=== PATIENT | male | born 1940 | race Caucasian/White ===

== ENCOUNTER → 2023-09-02 07:03 | Outpatient (REF) | payer OTHER, SELFPAY | LOC: RAD 07:03 | PROVIDERS: ATTENDING PHYSICIAN Family Medicine | DX: E11.69 Type 2 diabetes mellitus with other specified complication (principal); T46.6X5A Adverse effect of antihyperlipidemic and antiarteriosclerotic drugs, initial encounter; G72.0 Drug-induced myopathy; I12.9 Hypertensive chronic kidney disease with stage 1 through stage 4 chronic kidney disease, or unspecified chronic kidney disease; N18.31 Chronic kidney disease, stage 3a; G47.30 Sleep apnea, unspecified; I70.0 Atherosclerosis of aorta; I25.10 Atherosclerotic heart disease of native coronary artery without angina pectoris; E78.2 Mixed hyperlipidemia | CPT/HCPCS: 93880 ==

== ENCOUNTER 2024-01-17 06:26 | Outpatient (RCR) | payer OTHER, SELFPAY | END 2024-01-17 23:59 | disposition home or self-care (01) | LOC: RPT 06:26 | PROVIDERS: ATTENDING PHYSICIAN Orthopaedic Surgery Orthopaedic Surgery of the Spine; FAMILY PHYSICIAN Family Medicine | DX: M48.061 Spinal stenosis, lumbar region without neurogenic claudication (principal); M47.816 Spondylosis without myelopathy or radiculopathy, lumbar region; Z73.6 Limitation of activities due to disability | CPT/HCPCS: 97110; 97162 ==

== ENCOUNTER 2024-02-04 07:48 | Outpatient (RCR) | payer OTHER, SELFPAY | END 2024-02-04 08:38 | disposition home or self-care (01) | LOC: RPT 07:48 | PROVIDERS: ATTENDING PHYSICIAN Orthopaedic Surgery Orthopaedic Surgery of the Spine; FAMILY PHYSICIAN Family Medicine | DX: M48.061 Spinal stenosis, lumbar region without neurogenic claudication (principal); Z73.6 Limitation of activities due to disability | CPT/HCPCS: 97010; 97110 ==

== ENCOUNTER 2024-03-08 07:21 | Inpatient (IN) | payer OTHER, SELFPAY ==
[2024-02-22 10:16] LABS: Hematocrit 47.3 % (39.0-52.0); Hemoglobin 17.2 g/dL (13.0-18.0); Mean Corp Hgb Conc. 36.4 g/dL (33.0-37.0); Mean Corpuscular Hgb 32.3 pg (27.0-31.0); Mean Corpuscular Volume 88.7 fL (80.0-94.0); Mean Platelet Volume 12.2 fL (7.4-10.4); Platelet Count 170 10^3/uL (130-400); Red Blood Cell Count 5.33 10^6/uL (4.70-6.10); Red Cell Dist. Width 13.2 % (11.5-14.5)
[2024-02-22 11:11] LABS: ALT (SGPT) 31 U/L (0-50); AST (SGOT) 36 U/L (17-59); Albumin 4.7 g/dl (3.5-5.0); Alkaline Phosphatase 86 U/L (38-126); Blood Urea Nitrogen 26 mg/dl (9-20); Calcium 9.9 mg/dl (8.4-10.2); Carbon Dioxide 20 mmol/L (22-30); Chloride 104 mmol/L (98-107); Glucose 147 mg/dl (70-99); Potassium 4.2 mmol/L (3.5-5.1); Sodium 141 mmol/L (135-145); Total Bilirubin 0.9 mg/dl (0.2-1.3); Total Protein 7.2 g/dl (6.3-8.2); eGFR > 60.00
[2024-02-22 13:59] VITALS: BMI 34.1
[2024-03-01 12:45] VITALS: BMI 34.1
[2024-03-08] VITALS (13 sets, daily range): BP systolic 134–183; BP diastolic 61–96; PULSE 91; O2SAT 94; BMI 34.1
[2024-03-08 08:14] LABS: Glucose - Point of Care 143 mg/dl (70-99)
[2024-03-08] MEDS: CELEBREX 200 MG PO (08:15)
[2024-03-08] MEDS: NORMOSOL-R/PLASMALYTE-A 1000 IV ×2 (08:15→15:34)
[2024-03-08] MEDS: SKELAXIN 800 MG PO (08:16)
[2024-03-08] MEDS: LYRICA 150 MG PO (08:16)
[2024-03-08] MEDS: TYLENOL 1000 MG PO ×3 (08:16→22:19)
[2024-03-08 11:11] LABS: Glucose - Point of Care 133 mg/dl (70-99)
--- NOTE | 2024-03-08 11:21 | SUR.PHASEI ---
Patients 02 sat 70% on arrival to PACU, airway managed by HORSE BREEDER, oral airway inserted, 02 flow increased to 15L/min. sat increased to 90-94%. Darell Kumar RN BSN.
[2024-03-08] MEDS: DILAUDID 0.5 MG IV ×3 (11:27→11:54)
--- NOTE | 2024-03-08 12:06 | SUR.PHASEI ---
Patient in PACU for 160 mins. Waiting for admit orders, Dr Naqvi and [facility] TT re same. Darell tirado RN BSN.
[2024-03-08] MEDS: DILAUDID 0.25 MG IV ×3 (12:08→12:59)
--- NOTE | 2024-03-08 12:15 | W.DS.TRANS ---
DC Summary - Enologist
-
Discharge Instructions:
Discharge Diagnosis/Procedures L 3-4-[address] Naqvi 03/08/24
Diet Diabetic, Carb Controlled
Activity No strenuous activity
Driving Restrictions No driving
Instructions:
Stand-Alone Forms: [facility] D/C Inst.
Changes to Home Medications: Yes
Discharge Medications:
DC Medications w/original date entered in [facility]
aspirin 81 mg tablet,delayed release 81 mg PO DAILY Blood clot prevention/tx 05/18/13
alprazolam 0.25 mg tablet 0.25 mg PO DAILYPRN PRN anxiety ##0 11/13/15
nitroglycerin 0.4 mg sublingual tablet 0.4 mg sublingual [id number] PRN chest pain ##25 11/13/15
evolocumab 140 mg/mL subcutaneous syringe (Repatha Syringe) 140 mg SQ Q2W High cholesterol 02/18/20
Triamterene/Hydrochlorothiazid 1 tab PO DAILY 06/09/21
pantoprazole 40 mg tablet,delayed release 40 mg PO DAILY 06/09/21
ascorbic acid (vitamin C) 500 mg tablet (Vitamin C) 500 mg PO DAILY 03/01/24
empagliflozin 10 mg tablet (Jardiance) 10 mg PO DAILY 03/01/24
fiber 1 dose PO DAILY 03/01/24
polyethylene glycol 3350 17 gram oral powder packet (Miralax) 17 g PO DAILY PRN constipation 03/01/24
Saccharomyces boulardii 250 mg capsule (Florastor) 250 mg PO BID #1 cap 03/08/24
acetaminophen 500 mg tablet (Tylenol Extra Strength) 1,000 mg (2 x 500 mg) PO QID #0 tabs 03/08/24
cephalexin 500 mg capsule 500 mg PO QID infection prevention #20 caps 03/08/24
docusate sodium 100 mg capsule (Colace) 100 mg PO BID stool softner #1 cap 03/08/24
magnesium hydroxide 400 mg/5 mL oral suspension (Milk of Magnesia) 30 ml PO HS PRN Constipation #1 mL 03/08/24
ondansetron 4 mg disintegrating tablet 4 mg PO Q6H PRN n/v #20 tabs 03/08/24
oxycodone 5 mg tablet 5 mg PO Q6H PRN 1 tab moderate pain, 2 tabs severe pain #30 tabs 03/08/24
sennosides 8.6 mg tablet (Senokot) 17.2 mg (2 x 8.6 mg) PO BID laxative #2 tabs 03/08/24
Home Medication Changes
cephalexin 500 mg capsule 500 mg PO QID� infection prevention #20 caps 03/08/24�
ondansetron 4 mg disintegrating tablet 4 mg PO Q6H PRN n/v #20 tabs 03/08/24�
oxycodone 5 mg tablet 5 mg PO Q6H PRN 1 tab moderate pain, 2 tabs severe pain #30 tabs 03/08/24�
Pending Results: No
--- NOTE | 2024-03-08 15:00 | PTCARENOTE ---
Received patient from PACU at 1500. Patient AAOx3, no c/o pain, call goss in reach.
[2024-03-08 17:03] LABS: Glucose - Point of Care 290 mg/dl (70-99)
[2024-03-08] MEDS: LANTUS 0.05 UNITS SC (17:48)
[2024-03-08] MEDS: NOVOLOG FLEXPEN-MODERATE RESISTANCE 5 UNITS SC (17:49)
[2024-03-08] MEDS: ULTRAM 50 MG PO (17:53)
[2024-03-08] MEDS: FARXIGA 10 MG PO (17:53)
[2024-03-08] MEDS: PROTONIX 40 MG PO (17:53)
[2024-03-08] MEDS: ANCEF 5 IV (17:54)
[2024-03-08] MEDS: XANAX 0.25 MG PO (20:22)
[2024-03-08] MEDS: SENOKOT 17.2 MG PO (20:22)
[2024-03-08] MEDS: COLACE 100 MG PO (20:23)
[2024-03-08 22:16] LABS: Glucose - Point of Care 147 mg/dl (70-99)
[2024-03-09] VITALS (7 sets, daily range): BP systolic 132–156; BP diastolic 68–86; PULSE 69–77; O2SAT 94–95
[2024-03-09] MEDS: NORMOSOL-R/PLASMALYTE-A 1000 IV (00:46)
[2024-03-09] MEDS: ANCEF 5 IV (00:47)
[2024-03-09] MEDS: ROXICODONE 5 MG PO (04:13)
[2024-03-09 07:31] LABS: Glucose - Point of Care 219 mg/dl (70-99)
--- NOTE | 2024-03-09 08:00 | W.DS.TRANS ---
DC Summary - Service Agent
-
Discharge Instructions:
Discharge Diagnosis/Procedures L 3-4-[address] Naqvi 03/08/24
Diet Diabetic, Carb Controlled
Activity No strenuous activity
Driving Restrictions No driving
Instructions:
Stand-Alone Forms: Naqvi [facility] D/C Inst.
Changes to Home Medications: No
Discharge Medications:
DC Medications w/original date entered in [facility]
aspirin 81 mg tablet,delayed release 81 mg PO DAILY Blood clot prevention/tx 05/18/13
alprazolam 0.25 mg tablet 0.25 mg PO DAILYPRN PRN anxiety ##0 11/13/15
nitroglycerin 0.4 mg sublingual tablet 0.4 mg sublingual [id number] PRN chest pain ##25 11/13/15
evolocumab 140 mg/mL subcutaneous syringe (Repatha Syringe) 140 mg SQ Q2W High cholesterol 02/18/20
Triamterene/Hydrochlorothiazid 1 tab PO DAILY 06/09/21
pantoprazole 40 mg tablet,delayed release 40 mg PO DAILY 06/09/21
ascorbic acid (vitamin C) 500 mg tablet (Vitamin C) 500 mg PO DAILY 03/01/24
empagliflozin 10 mg tablet (Jardiance) 10 mg PO DAILY 03/01/24
fiber 1 dose PO DAILY 03/01/24
polyethylene glycol 3350 17 gram oral powder packet (Miralax) 17 g PO DAILY PRN constipation 03/01/24
Saccharomyces boulardii 250 mg capsule (Florastor) 250 mg PO BID #1 cap 03/08/24
acetaminophen 500 mg tablet (Tylenol Extra Strength) 1,000 mg (2 x 500 mg) PO QID #0 tabs 03/08/24
cephalexin 500 mg capsule 500 mg PO QID infection prevention #20 caps 03/08/24
docusate sodium 100 mg capsule (Colace) 100 mg PO BID stool softner #1 cap 03/08/24
magnesium hydroxide 400 mg/5 mL oral suspension (Milk of Magnesia) 30 ml PO HS PRN Constipation #1 mL 03/08/24
ondansetron 4 mg disintegrating tablet 4 mg PO Q6H PRN n/v #20 tabs 03/08/24
oxycodone 5 mg tablet 5 mg PO Q6H PRN 1 tab moderate pain, 2 tabs severe pain #30 tabs 03/08/24
sennosides 8.6 mg tablet (Senokot) 17.2 mg (2 x 8.6 mg) PO BID laxative #2 tabs 03/08/24
Home Medication Changes
Pending Results: No
--- NOTE | 2024-03-09 08:00 | W.PN.SP ---
Today's Communication / Plan
-
s/p fusion
PT
D/c
Subjective / Objective
Subjective Data
Back pain
Doing well
Objective Data
Vital Signs
Temp Pulse Resp BP Pulse Ox
97.6 F 65 18 142/86 95
03/09/24 03:05 03/09/24 06:12 03/09/24 03:05 03/09/24 06:12 03/09/24 03:05
Intake and Output
03/08/24 03/09/24 03/10/24
06:59 06:59 06:59
Intake Total 2559 / 2559
Output Total 1250 / 1250
Balance 1309 / 1309
Intake:
Oral fluids 1129 / 1129
IV fluids (Total) 1425 / 1425
Norm 125 / 125
Normosol-R/Plasmalyte-A 1,000 140 / 140
ml @ 80 mls/hr IV .L20H21P ABILIO
Rx#:[id number]
IV piggybacks 5 /
Output:
Urine, Voided 1250 / 1250
Physical Exam
-
NO neuro defictis
[2024-03-09] MEDS: ULTRAM 50 MG PO (08:50)
[2024-03-09] MEDS: TYLENOL 1000 MG PO (08:50)
[2024-03-09] MEDS: COLACE 100 MG PO (08:50)
[2024-03-09] MEDS: SENOKOT 17.2 MG PO (08:50)
[2024-03-09] MEDS: FARXIGA 10 MG PO (08:50)
[2024-03-09] MEDS: PROTONIX 40 MG PO (08:50)
[2024-03-09] MEDS: XANAX 0.25 MG PO (08:50)
[2024-03-09] MEDS: LANTUS 0.05 UNITS SC (08:50)
[2024-03-09] MEDS: NOVOLOG FLEXPEN-MODERATE RESISTANCE 3 UNITS SC (08:51)
[2024-03-09 09:55] LABS: Hematocrit 43.6 % (39.0-52.0); Hemoglobin 15.5 g/dL (13.0-18.0)
[2024-03-09 11:03] LABS: Blood Urea Nitrogen 20 mg/dl (9-20); Calcium 8.7 mg/dl (8.4-10.2); Carbon Dioxide 24 mmol/L (22-30); Chloride 100 mmol/L (98-107); Estimated Creatinine Clearance 55 ml/min; Glucose 174 mg/dl (70-99); Sodium 139 mmol/L (135-145); eGFR > 60.00
--- NOTE | 2024-03-09 11:35 | W.PN.ORTHO ---
Today's Communication / Plan
-
d/c
Assessment
.
Distal Motor Intact: Yes
Dressing:
Clean, dry and intact.
Plan
.
Surgery / Date: [facility] w/ inst Dr. Naqvi 03/08/24
Activity:
Out of bed.
PT/OT
Subjective
.
.:
Patient resting comfortably.
Vital Signs and Labs
.
Vital Signs and Labs:
Lab Results
03/09/24 09:33
03/09/24 09:33
Temp Pulse Resp BP Pulse Ox
98.1 F 73 16 137/74 96
03/09/24 11:02 03/09/24 11:02 03/09/24 11:02 03/09/24 11:02 03/09/24 11:02
Physical Exam
-
HEENT: No pallor, cyanosis, or jaundice. Throat clear.
NECK: Supple. No JVD.
RESPIRATORY: Lungs clear to auscultation.
CVS: S1, S2 normal. RRR.� No murmur, rub or gallop.
ABDOMEN: Soft, non-tender. No distension. BS+/normal.
EXTREMITIES: strength equal, no calf pain with palpation
REPORT MANAGER: AOx3. No focal deficits. animal attendants and trainers grossly intact
[2024-03-09 11:49] LABS: Glucose - Point of Care 147 mg/dl (70-99)
[2024-03-09] MEDS: NOVOLOG FLEXPEN-MODERATE RESISTANCE SC (11:50)
[2024-03-09 12:21] LABS: Glycohemoglobin (HgbA1c) 6.8 % (4.0-5.6)
--- NOTE | 2024-03-09 16:14 | CM ---
met with patient and at bedside.patient lives with his son and son's girlfriend in house with 1 morris,his bed and bat his on the first level,he amb i and is i with his adl.he has never had a vn or has a hx of ip rehab.
pcp is dr yuen and he uses [facility] in [place]
patient is adm for L 3-5 posterior spinal fusion,he is stable for dc home with op physical therapy.
== END 2024-03-09 13:43 | disposition home or self-care (01) | DRG 460 ==
LOC: 2 SOUTH 07:21
PROVIDERS: Physician Assistant Medical; ADMITTING PHYSICIAN Orthopaedic Surgery Orthopaedic Surgery of the Spine; FAMILY PHYSICIAN Family Medicine
PROC: 0SG10K1 Fusion of 2 or more Lumbar Vertebral Joints with Nonautologous Tissue Substitute, Posterior Approach, Posterior Column, Open Approach (ICD-10-PCS; 2024-03-08)
DX: M43.16 Spondylolisthesis, lumbar region (principal); M48.061 Spinal stenosis, lumbar region without neurogenic claudication; M41.9 Scoliosis, unspecified; E11.22 Type 2 diabetes mellitus with diabetic chronic kidney disease; I12.9 Hypertensive chronic kidney disease with stage 1 through stage 4 chronic kidney disease, or unspecified chronic kidney disease; N18.31 Chronic kidney disease, stage 3a; E11.65 Type 2 diabetes mellitus with hyperglycemia; K21.9 Gastro-esophageal reflux disease without esophagitis; E78.2 Mixed hyperlipidemia; I25.10 Atherosclerotic heart disease of native coronary artery without angina pectoris; G43.909 Migraine, unspecified, not intractable, without status migrainosus; G47.30 Sleep apnea, unspecified; F41.9 Anxiety disorder, unspecified; I25.2 Old myocardial infarction; Z95.5 Presence of coronary angioplasty implant and graft; Z88.8 Allergy status to other drugs, medicaments and biological substances; Z79.82 Long term (current) use of aspirin; Z79.84 Long term (current) use of oral hypoglycemic drugs
CPT/HCPCS: 72100; 76000; 80048; 80053; 82962; 83036; 85014; 85018; 85027; 87070; 93005; 94660; 97162; 97166; 97530; 97535; C1713; C1776

== ENCOUNTER → 2024-05-23 07:21 | Outpatient (REF) | payer OTHER, SELFPAY | LOC: DHCBC/DCA 07:21 | PROVIDERS: ATTENDING PHYSICIAN Internal Medicine Cardiovascular Disease; FAMILY PHYSICIAN Family Medicine | DX: I25.10 Atherosclerotic heart disease of native coronary artery without angina pectoris (principal) | CPT/HCPCS: 78452; 93017; A9500; J2785 ==

== ENCOUNTER 2024-05-30 07:04 | Day surgery (SDC) | payer OTHER, SELFPAY ==
[2024-05-30] VITALS (19 sets, daily range): BP systolic 124–157; BP diastolic 67–119; BMI 34.2
[2024-05-30] MEDS: LOW STRENGTH ASPIRIN 81 MG PO (07:55)
[2024-05-30 08:22] LABS: Glucose - Point of Care 158 mg/dl (70-99)
--- NOTE | 2024-05-30 10:03 | ITS.CL.CATH ---
Abap Developer - Catheterization
Cardiac Catheterization
Procedure Report:
CARDIAC CATHETERIZATION REPORT
Date of Procedure: 05/30/2024
Referring: Danilo Beckett MD
Indication: Worsening angina with abnormal stress test (inferolateral ischemia)
�
HEMODYNAMIC DATA
AO: 146/92
LV: Not done
�
LEFT VENTRICULOGRAPHY: Not done
�
CORONARY ANGIOGRAPHY
Dominance: Right
Left Main: Normal
LAD: Widely patent mid LAD stent without restenosis. There is 30-40% stenosis in the mid LAD similar to its appearance from the prior study from 01/2020. There are tandem 40% distal LAD lesions.
Circumflex: 40% mid circumflex stenosis proximal to the takeoff of OM 2. OM 2 is a large bifurcating vessel. The circumflex terminates with OM 3 and a small left posterolateral branch. OM 3 has 50% mid stenosis. The circumflex disease is similar
in appearance to the 02/19/2020 study.
RCA: Dominant vessel with 20% proximal RCA stenosis followed by a widely patent stented segment. There is a long stented segment in the mid and distal RCA with a focal area of 20% in-stent stenosis. There is a new 80% lesion in the distal RCA just
proximal to the takeoff of the PDA and moderate-sized single right posterolateral branch. There is diffuse mild disease in the PDA and posterolateral branch.
Angioplasty: At the conclusion the diagnostic study we proceeded with intervention to treat the focal 80% distal RCA lesion. Heparin is used for anticoagulation. Plavix 600 mg was administered at the procedure conclusion. An AR-1 guide provided
outstanding backup support. A BMW wire was advanced into the right posterolateral branch. Direct stenting of the lesion was accomplished with a 3.5 x 12 [place] ASHOK deployed at 14 alex then postdilated with a 3.5 NC Euphora to 17 alex. The final
angiographic result was outstanding. There were no procedural complications.
�
Closure Device: None-the procedure was performed via the right radial artery. The David's test was normal prior to the procedure. Of note, there is a severe degree of angulation from the innominate into the aortic arch. Despite the unfavorable
appearance, we had little difficulty navigating in the aortic root with diagnostic and guide catheters.
�
Radiation (mGy): 758
DAP (cm2.Gy): 51.2
Fluoroscopy time: 5.1 minutes
�
CONCLUSIONS
1:�Multivessel CAD as described-the coronary anatomy is similar to its appearance on the January 2020 study with the exception of a new 80% distal RCA lesion felt to be the culprit for his increasing angina
2:�Successful stenting of 80% distal RCA stenosis using 3.5 x 12 [place] ASHOK with outstanding final result
3. Continue DAPT for 6-12 months then aspirin monotherapy indefinitely
�
�
Copy to: Jerrod Ballesteros MD, Nico Rosa MD
�
Danilo Beckett MD, [facility], [facility]
[2024-05-30 10:27] LABS: ACT-LR - POC 253 Seconds (116-155)
--- NOTE | 2024-05-30 14:22 | W.PN.UPDATE ---
Update Note
Progress Note Update
83 yo WM s/p PCI RCA (same day). He denies cp, sob, modesto diet, voiding, EKG SR, R rad site c/d/i no HT. He will be on DAPT ASA/Plavix. Cardiac rehab c/s. Activity restrictions reviewed. 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 He is for d/c home after 330pm.
CONCLUSIONS
1:�Multivessel CAD as described-the coronary anatomy is similar to its appearance on the January 2020 study with the exception of a new 80% distal RCA lesion felt to be the culprit for his increasing angina
2:�Successful stenting of 80% distal RCA stenosis using 3.5 x 12 [place] ASHOK with outstanding final result
3. Continue DAPT for 6-12 months then aspirin monotherapy indefinitely
�
�
Copy to: Jerrod Ballesteros MD, Nico Rosa MD
[2024-05-30 15:07] LABS: ACT-LR - POC > 397 Seconds (116-155)
== END 2024-05-30 14:45 | disposition home or self-care (01) ==
LOC: CATH 07:04
PROVIDERS: ATTENDING PHYSICIAN Internal Medicine Cardiovascular Disease; FAMILY PHYSICIAN Family Medicine
DX: I25.110 Atherosclerotic heart disease of native coronary artery with unstable angina pectoris (principal); Z79.82 Long term (current) use of aspirin; Z79.899 Other long term (current) drug therapy; Z79.84 Long term (current) use of oral hypoglycemic drugs; I10 Essential (primary) hypertension; K21.9 Gastro-esophageal reflux disease without esophagitis
CPT/HCPCS: 82962; 85347; 93005; 93454; C1725; C1769; C1874; C1894; C9600; Q9967

== ENCOUNTER 2024-06-08 09:28 | Inpatient (IN) | payer OTHER, SELFPAY ==
[2024-06-07] VITALS (7 sets, daily range): BP systolic 89–153; BP diastolic 50–95; BMI 31.1
[2024-06-07 15:57] LABS: % Basophils 0.5 % (0-2); % Eosinophils 1.5 % (0-6); % Immature Granulocytes 0.4 % (0-0.5); % Lymphocytes 12.2 % (20.5-51.1); % Monocytes 8.2 % (1.7-9.3); % Neutrophils 77.2 % (42.2-75.2); Absolute Basophils 0.1 10^3/uL (0-0.2); Absolute Eosinophils 0.2 10^3/uL (0-0.7); Absolute Immature Granulocytes 0.1 10^3/uL (0-0.05); Absolute Lymphocytes 1.7 10^3/uL (1.2-3.4); Absolute Monocytes 1.1 10^3/uL (0.1-0.6); Absolute Neutrophils 10.8 10^3/uL (1.4-6.5); Hematocrit 49.7 % (39.0-52.0); Hemoglobin 17.4 g/dL (13.0-18.0); Mean Corpuscular Hgb 32.4 pg (27.0-31.0); Mean Corpuscular Volume 92.6 fL (80.0-94.0); Mean Platelet Volume 10.9 fL (7.4-10.4); Nucleated Red Blood Cells % 0 % (-); Platelet Count 225 10^3/uL (130-400); Red Blood Cell Count 5.37 10^6/uL (4.70-6.10); Red Cell Dist. Width 12.5 % (11.5-14.5)
[2024-06-07 16:15] LABS: ALT (SGPT) 27 U/L (0-50); AST (SGOT) 28 U/L (17-59); Albumin 4.7 g/dl (3.5-5.0); Alkaline Phosphatase 118 U/L (38-126); Blood Urea Nitrogen 30 mg/dl (9-20); Calcium 9.6 mg/dl (8.4-10.2); Carbon Dioxide 20 mmol/L (22-30); Chloride 104 mmol/L (98-107); Glucose 142 mg/dl (70-99); Potassium 3.9 mmol/L (3.5-5.1); Sodium 138 mmol/L (135-145); Total Bilirubin 0.6 mg/dl (0.2-1.3); Total Protein 7.4 g/dl (6.3-8.2); eGFR > 60.00
[2024-06-07 16:42] LABS: Troponin I < 0.012 ng/ml
--- NOTE | 2024-06-07 17:57 | ED.GENMED ---
History of Present Illness
General
Chief Complaint: Chest Pain
Time Seen by Provider: 06/07/24 17:26
History of Present Illness
History of Present Illness:
83-year-old male history of CAD, hypertension, hyperlipidemia, GERD presenting with chest pain starting this morning. Patient states that he was having chest discomfort after eating breakfast this morning but then worsened with minimal exertion
with associated shortness of breath. Patient states that he rested and pain improved. Patient states that he took a nap this afternoon but continued to have pain prompting ED arrival. Patient states he took 2 nitro prior to arrival which improved
pain. Of note patient states that he had a cardiac catheterization 5 days ago, 1 stent was placed. Patient denies fever, chills, cough, or lower extremity swelling. Patient denies pleuritic component. Patient states that he has been compliant
with aspirin and Plavix. Pt states this feels similar to previous chest pain prior to receiving cardiac stent.
Past History
Past History
ED Past Medical History: CAD, HTN, Hypercholesterolemia, NC and Other (coronary stents, sleep apnea, Pneumonia, Epidural spinal injections, kidney stones, angina shortness of breath, bronchiolitis, uses CPAP, dyspnea, pneumonia, sleep apnea,
arthritis, Lyme disease, anxiety, depression)
ED Past Surgical History: Cardiac, Urological and Other
Social History
Tobacco: Non-smoker
Alcohol: None
Drug: None
Personal:
Living: with family
Employment: Retired
Family History
Family History: CAD
Phy Exam
Physical Exam
Physical Exam:
General: Alert, no acute distress, not diaphoretic
Head: NCAT
Eyes: clear conjunctiva
Neck: supple
Cardiac: regular rate and rhythm, no murmur. No reproducible chest wall tenderness to palpation. 2+ radial and DP pulses bilaterally
Lungs: clear to auscultation bilaterally. No wheezes, rales, or rhonchi. Speaking full unlabored sentences. No respiratory distress.
Abdomen: soft, nondistended nontender. No rebound or guarding.
MSK: no lower extremity edema bilaterally. No deformity
Skin: warm, dry
Neuro: Alert and oriented x3. no focal deficits
Scores
Heart Score for Chest Pain Patients
STEMI patient?: No
History: Highly Suspicious
ECG: Normal
Age: >/= 65 years
Risk Factors: >/= 3 Risk Factors or History of CAD
Troponin: </= Normal Limit
Heart Score for Chest Pain Patients: 6
Heart Score Risk: 20.3% MACE over next 6 weeks
Course
Orders/Labs/Results
Orders:
Orders
06/07/24 15:03
ECG [Electrocardiogram (*1)] Urgent
Reason for Study: Chest Pain
EKG- Treatment ONCE
06/07/24 15:26
Complete Blood Count/With Diff Urgent
Comprehensive Metabolic Panel Urgent
Troponin I Urgent
06/07/24 18:04
Electrocardiogram (*1) Urgent
Reason for Study: Chest Pain
EKG- Treatment ONCE
06/07/24 18:37
Troponin I Urgent
06/07/24 19:11
CXR2 [CR Chest - 2 Views ] Urgent
Comment:
Reason For Exam: chest pain
06/07/24 21:35
Admit/Transfer Patient As Directed
Co-Sign Provider:
Level of Care: Observation services
Assign to:: Telemetry
Physician / Group: hospitalist
Diagnosis: chest pain
Reason for Telemetry: Chest Pain syndromes
Date to Stop Telemetry: 06/09/24
Time to Stop Telemetry: 11:00
PRN Pain Medication Management As Directed
May give lesser potent ordered pain med per pt: Yes
preference::
Protocol:: Medication orders for pain may be administered in a
manner that supports deferring to patient preference
when the pt is:
- Requesting an ordered lesser potent pain medication.
Least to most potent pain medications are defined
as: acetaminophen < NSAID < tramadol < opioids
(morphine, oxycodone, hydromorphone).
- Requesting a lesser dose of the same medication IF
ORDERED.
- Requesting a less intrusive route of administration
if both routes are prescribed by the provider (PO <
IV).
06/07/24 21:36
Code Status As Directed
Resuscitation Status: Full Code
06/07/24 23:07
Acetaminophen [Tylenol] 650 mg PO Q4HPRN PRN
Alprazolam [Xanax] 0.25 mg PO DAILYPRN PRN
Nitroglycerin Sublingual [Nitrostat (Sublingual)] 0.4 mg SL [id number] PRN
Ondansetron Injectable [Zofran] 4 mg IV Q6HPRN PRN
06/07/24 23:07
CARDIOLOGY CONSULT Routine
Consulting Provider: Saúl Gaitan
Was physician already notified: Yes
Reason for consult: exertion chest pain, with minimal exertion
Activity As Directed
Activity Level: With Assistance
INT (Intravenous Needle Therapy) As Directed
Comment: maintain peripheral IV access
Intake/ Output As Directed
Frequency: Per unit guidelines
Vital Signs As Directed
Frequency: q4h
Weight As Directed
Frequency: Once
DX Deep Vein Thrombosis Video Routine
06/07/24 23:55
Troponin I Q6H
Comment: at admit & Q3H for 3 total including ED draws, obtain ECG with each level
06/08/24 Breakfast
NPO
Allow oral meds: Yes
Allow clear liquids: Sips of Clears
Basic Metabolic Panel IN AM
06/08/24 08:00
Aspirin Low Dose EC [Aspir Low (Enteric Coated)] 81 mg PO DAILY
Clopidogrel Bisulfate [Plavix] 75 mg PO DAILY
Dapagliflozin [Farxiga] 10 mg PO DAILY
Pantoprazole [Protonix] 40 mg PO DAILY
Triamterene/Hctz [Dyazide] 1 capsule PO DAILY
06/08/24 18:00
Enoxaparin Sodium [Lovenox] 40 mg SC QPM
06/08/24 22:00
O2 Therapy [RESP] HS
Nasal Cannula Liter Flow: 2 LPM
Titrate/Wean O2 to maintain O2 sat greater than (%): 93
Special Instructions: apply HS for JUAN pending home CPAP
06/09/24 11:00
DC Protocol for Telemetry ONCE
Abnormal Lab Results
06/07/24
15:26
WBC 14.0 H 10^3/uL
(4.8-10.8)
MCH 32.4 H pg
(27.0-31.0)
MPV 10.9 H fL
(7.4-10.4)
Abs Immat Gran (auto) 0.1 H 10^3/uL
(0-0.05)
Absolute Neuts (auto) 10.8 H 10^3/uL
(1.4-6.5)
Absolute Monos (auto) 1.1 H 10^3/uL
(0.1-0.6)
Neutrophils % 77.2 H %
(42.2-75.2)
Lymphocytes % 12.2 L %
(20.5-51.1)
Carbon Dioxide 20 L mmol/L
(22-30)
BUN 30 H mg/dl
(9-20)
Glucose 142 H mg/dl
(70-99)
06/07/24 15:26
06/07/24 15:26
Vital Signs
Initial and Last Documented VS:
Initial Vital Signs
Temp Pulse Resp BP Pulse Ox
98.6 F 98 22 147/93 98
06/07/24 15:18 06/07/24 15:18 06/07/24 15:18 06/07/24 15:18 06/07/24 15:18
Last Documented Vital Signs
Temp Pulse Resp BP Pulse Ox
98.1 F 99 18 153/95 99
06/07/24 23:27 06/07/24 23:27 06/07/24 23:27 06/07/24 23:27 06/07/24 23:27
MDM/Problems Addressed
Differential Diagnosis Includes:
NSTEMI, pericarditis, GERD, stable angina, pneumothorax
MDM/Problems Addressed:
83-year-old male history of CAD, hypertension, hyperlipidemia status post 1 stent in RCA last week presenting with exertional chest pain starting today. Initial EKG shows normal sinus rhythm at 94 bpm with NC 174 QTc 475 no acute ischemic changes,
frequent PVCs. Labs reviewed, troponin negative x 2. Chest x-ray clear. Repeat EKG shows normal sinus rhythm 86 bpm with NC 172 QTc 464 no acute ischemic changes. On reexamination, patient denies any chest pain. Discussed with cardiology who
recommended observation and cardiology consultation in the morning. Discussed with hospitalist for admission
*Critical Care Note
Total Time (30-74mins, 75-104mins- exclusive of procedures): Not Applicable
ED Attending Note
-
Portions of this chart may have been created with voice recognition software.� Occasional wrong word or��sound alike� substitutions may have occurred due to the inherent limitations of voice recognition software.
Discharge Plan
Departure
Patient Disposition: Admit
Date of Disposition: 06/07/24
Time of Disposition: 21:02
Presentation/result/management discussed w/ accepting MD/DO: Hospitalist
Discharge Problem:
Chest pain
Interventions
Interventions:
*Risk Screen - Suicide Last Done: 06/07/24 15:18
*General Assessment Last Done: 06/07/24 15:18
*Neglect/Abuse Screening Last Done: 06/07/24 15:18
*ED COVID-19 Vaccine History Last Done: 06/07/24 23:26
*Nursing Disposition Last Done: 06/07/24 23:14
ED- Cardiac Assessment Last Done: 06/07/24 17:45
Discharge Date and Time
Discharge Date/Time: 06/07/24 23:14
[2024-06-07 19:07] LABS: Troponin I < 0.012 ng/ml
--- NOTE | 2024-06-07 21:23 | HPS.HSE ---
Family Physician
-
Family Physician: Rafael Ballesteros
Chief Complaint
-
Exertional chest pain
History of Present Illness
This is a 83-year-old male who has a past medical history significant for CAD with multiple stents, hyperlipidemia, hypertension, JUAN on CPAP presenting to the emergency department with recurrent chest pain that is mostly exertional about 1 week
after RCA stent for exertional chest pain and positive stress test.
Patient reported that after his back surgery he developed exertional chest pain few weeks ago. At that time he had a stress test which was positive. He then underwent cardiac cath and a stent was placed in RCA about 1 week ago. Prior to that the
patient had a stent placed 3 years ago. He had been on Repatha since then and has been chest pain-free up until his back surgery. Patient reported at this time he had 3 days of being chest pain-free after stent was placed. He then started having
exertional chest pain with the pain seems to be in the bilateral shoulders and sometimes radiating to the back. Exertional chest pain worse on arousal this morning. There is no associated nausea vomiting or diaphoresis. Chest pain with just
moving around in the chair at dinner. Went home and continued to have chest pain with movement. He decided to come to the emergency department. While in waiting room, had chest pain while walking, he took 2 nitroglycerin sublingually which helped
and the chest pain has not recurred. Patient states that while at rest he does have no chest pain but with any movement such as he will being transferred for x-rays he develops chest pain. He denied any shortness of breath. He denies chest pain
with inspiration or cough. He denies any bilateral lower extremity swelling.
In the ED he was hemodynamically stable with blood pressure of 140/69 pulse of 87 oximetry of 94% and afebrile. ECG shows normal sinus rhythm with known left anterior fascicular block and otherwise unchanged from prior. He had troponin that was
negative x 2. Chest x-ray shows no acute infiltrates. White count was 14 with CBC otherwise unremarkable. Electrolytes BUN/creatinine WNL and not change from prior.
Medical History
Past Medical History
Past Medical History: Reports CAD (s/p RCA stent 1 week ago, 6 other stents in the past), GERD, HTN and Hypercholesterolemia
Additional Past Medical History:
JUAN on CPAP
Past Surgical History: Reports Orthopedic (back surgery)
Social History
Tobacco: Non-smoker
Alcohol: None
Drug: None
Personal:
Living: With Family
Employment: Retired
Family History
Family History: Not pertinent
Allergies / Home Medications
Allergies reflects when Allergies were last updated in [facility].
Home Medications with original date entered in [facility]
Allergy/Medication List:
Allergies
Allergy/AdvReac Type Severity Reaction Status Date / Time
gemfibrozil Allergy Unknown Myalgias Verified 03/08/24 07:49
influenza virus vaccine ts Allergy Unknown 'gets very Verified 03/08/24 07:49
[id number] (36 mos,up) tired,achy'
[From Fluarix]
alcohol Allergy migraine Verified 03/08/24 07:49
perflutren [From Definity] Allergy Chest Pain Verified 03/08/24 07:49
Shellfish *RETIRED-03/15/12 Allergy SEVERE Verified 03/08/24 07:49
[Shellfish] MIGRAINE
Ohbizop-LJB-TbH Reductase Allergy LEG PAINS, Verified 03/08/24 07:49
Inhibitor MUSCLE PAIN
[Xxwjzoh-Qky-Qzb Reductase
Inhibitor]
DEFINITY Allergy Chest Pain Uncoded 03/08/24 07:49
Home Medications
aspirin 81 mg tablet,delayed release 81 mg PO DAILY Blood clot prevention/tx 05/18/13
nitroglycerin 0.4 mg sublingual tablet 0.4 mg sublingual [id number] PRN chest pain ##25 11/13/15
evolocumab 140 mg/mL subcutaneous syringe (Repatha Syringe) 140 mg SQ Q2W High cholesterol 02/18/20
pantoprazole 40 mg tablet,delayed release 40 mg PO DAILY Gastrointestinal Issue 06/09/21
triamterene 37.5 mg-hydrochlorothiazide 25 mg tablet 1 tab PO DAILY Blood Pressure ##0 06/09/21
empagliflozin 10 mg tablet (Jardiance) 10 mg PO DAILY Diabetes 03/01/24
clopidogrel 75 mg tablet 75 mg PO DAILY #90 tabs 05/30/24
alprazolam 0.25 mg tablet 0.25 mg PO DAILYPRN PRN anxiety 06/07/24
polyethylene glycol 3350 17 gram oral powder packet (Miralax) 17 g PO DAILY 06/07/24
Review of Systems
-
History Source: Patient
Constitutional: Reports No Symptoms
EENT: Reports No Symptoms
Respiratory: Reports No Symptoms
Cardiac: Reports Chest Pain
Abdomen/GI: Reports No Symptoms
: Reports No Symptoms
Musculoskeletal: Reports No Symptoms
Skin: Reports No Symptoms
Neurological: Reports No Symptoms
Endocrine: Reports No Symptoms
Hematologic/Lymphatic: Reports No Symptoms
Psych: Reports No Symptoms
Physical Exam
Vital Signs
Vital Signs
Temp Pulse Resp BP Pulse Ox
98.6 F 87 19 140/69 94
06/07/24 15:18 06/07/24 20:30 06/07/24 20:30 06/07/24 20:18 06/07/24 20:30
Physical Exam
General: Well Developed, Well Nourished, No Apparent Distress and Comfortable
HEENT: NormoCephalic, Anicteric, Moist mucous membranes and Atraumatic
Respiratory: Clear
Cardiac: S1/S2 and Regular Rhythm
Breast: Deferred by me
GI: Soft, Non Tender, Non Distended and Normal Bowel Sounds
Rectal: Deferred by Provider
Genito-urinary: Deferred by me
Musculoskeletal: No Clubbing, No Cyanosis and No Edema
Skin: Warm
Neuro: AO x 3
Hematologic/Lymphatic: No Lymphadenopathy
Psych: Calm
Laboratory Results
-
06/07/24 15:26
06/07/24 15:26
Laboratory Results
Total Bilirubin 0.6 mg/dl (0.2-1.3) 06/07/24 15:26
AST 28 U/L (17-59) 06/07/24 15:26
ALT 27 U/L (0-50) 06/07/24 15:26
Alkaline Phosphatase 118 U/L (38-126) 06/07/24 15:26
Troponin I < 0.012 ng/ml 06/07/24 18:37
Data Reviewed
-
Diagnostic Radiology: Image Personally Visualized and interpreted
Medical Tests (Nuc Med, Echo, EKG etc): Image Personally Visualized and interpreted
Lab Data: Labs Reviewed by me
Old Records: Reviewed
Impression/Plan
-
IMPRESSION:
83 y.o male h/o CAD s/p RCA stent last week for positive stress test in setting of exertional angina, on DAPT and compliant, coming in with exertional chest pain improved with nitroglycerin. Pain not reproducible with palpation. No SOB or
pleuritic CP. No leg swelling. ECG w/o ischemia. Troponin negative x 2. D/W cardiology.
PLAN:
Chest pain - Exertional angina relieved with nitro suspicious for cardiac etiology
- admit to telemetry observation
- trend troponins
- nitroglycerin prn cp,repeat ecg and report to cards overnight
- continue DAPT/ (on repatha)
- continue Jardiance
- cardiology consultation, npo in am for possible stress/cath
HTN - Normotensive in ED, some soft BP noted on tele
- hold parameters on hctz/triamterene
GERD
- ppi
JUAN
- home CPAP when available
- oxygen HS
DVT PPX - lovenox sq
Code status - full code
--- NOTE | 2024-06-07 21:46 | EDRN ---
blood pressure from 21:00 charted in error, pt rechecked. blood pressure 122/50. pt reports his bp tends to drop at night
[2024-06-07] MEDS: MOTRIN 200 MG PO (23:34)
[2024-06-08 00:55] LABS: Troponin I 0.073 ng/ml
[2024-06-08 03:42] VITALS: BP 106/48
[2024-06-08] MEDS: TYLENOL 650 MG PO (03:48)
[2024-06-08] MEDS: BENADRYL 25 MG PO (03:48)
--- NOTE | 2024-06-08 06:07 | W.PN.UPDATE ---
Update Note
Progress Note Update
Troponin 0.012>>0.012>>0.073. stable VS, patient asymptomatic, Trend Troponin, Basket Maker consult in place. EKG in AM, Basket Maker made aware.
[2024-06-08 07:15] VITALS: BP 143/67
[2024-06-08 07:53] LABS: Blood Urea Nitrogen 24 mg/dl (9-20); Calcium 9.4 mg/dl (8.4-10.2); Carbon Dioxide 19 mmol/L (22-30); Chloride 105 mmol/L (98-107); Estimated Creatinine Clearance 56 ml/min; Glucose 135 mg/dl (70-99); Potassium 4.1 mmol/L (3.5-5.1); Sodium 140 mmol/L (135-145); eGFR > 60.00
--- NOTE | 2024-06-08 08:37 | CON.CAR ---
Addendum entered and electronically signed by Paul Deluna MD 06/08/24 10:58:
I saw and examined the patient.
The AUXILIARY PLANT OPERATOR's note was reviewed and I agree with the note.
Comment: 83-year-old gentleman with past medical history of CAD with multiple PCI's most recently on 30 May to the distal RCA with nonobstructive residual disease, hypertension, hyperlipidemia diabetes, multiple drug intolerances presents for
ongoing chest pain with exertion. Patient states after the stent he only felt well for 1 day and symptoms recurred quickly. He has had no chest pain at rest. He is not on any antianginal therapies as he 'does not tolerate medications well'. He
says he has been taking his DAPT without missing any doses. Currently his chest pain-free. On exam he has a regular rate and rhythm with normal S1-S2 2 out of 6 crescendo decrescendo murmur in the right upper sternal border lungs are clear to
auscultation bilateral without any wheezes rales or rhonchi abdomen is soft nontender, extremities are warm well-perfused, he is alert and oriented x 3. His is at the bedside and added to her history. EKG showed normal sinus rhythm with left
anterior fascicular block PVCs no change from prior. Initial troponins are unimpressive although there does seem to be a bit of a rise and fall. I reviewed his catheterization with Dr. Duarte as well. Overall, history is consistent with stable
angina. It does not appear that his PCI provided any symptomatic relief. At this time I would recommend initiating more aggressive efforts at pharmacotherapy. He does not tolerate nitrates due to her severe headaches. Will start with
beta-tana. If troponin continues to rise, then may need to consider a relook, but acute stent thrombosis is usually a more dramatic presentation than we are seeing today. I did explain that if this is just stable angina it will take time for
him to feel better but, with multiple medication trials and dose titrations. We will keep him n.p.o. until we have the next troponin level. Otherwise we will update his echo given his history of aortic stenosis and clear murmur on exam. Care of
his diabetes as per medicine. Will continue his triamterene-hydrochlorothiazide as he seems to tolerate this well for his blood pressure, but this could be changed to an antianginal if needed.
For follow-up. Recommendations discussed with Dr. Looney.
Original Note:
Consultation
Consultation Request
Date/Time Consultation Requested: 06/07/242306
Date/Time Consultation Performed: 06/08/24 0830
Requesting Provider: Dr. Brennan
Performing Provider: Analia BEVERLY for Dr. Deluna
Reason for Consultation: Chest discomfort
Medical History
-
Chief Complaint: chest discomfort
History of Present Illness:
83 y/o male with dyslipidemia, hypertension, DM2, mild , and CAD with stenting who is here for evaluation of chest discomfort. Briefly, he recently had a cardiac cath with stenting (05/30/24)- distal RCA (details as below) -done for CP with
abnormal stress test. He did not feel improved afterward and has had chest discomfort with minimal exertion. There is associated SOB. It takes about 20 minutes to resolve. He took nitro x 2 yesterday, but does not like to because it gives him a bad
headache, though does think it helped the CP. He has no CP at present.
Past Medical History
Past Medical History: CAD, HTN, Hypercholesterolemia and NIDDM
Social History
Tobacco: Non-Smoker
Personal:
Living: With Family
Family History
Family History: Reviewed & Not Pertinent
Allergies / Home Medications
Allergy/AdvReac Type Severity Reaction Status Date / Time
alcohol Allergy migraine Verified 03/08/24 07:49
gemfibrozil Allergy Myalgias Verified 06/07/24 23:09
influenza virus vaccine ts Allergy 'gets very Verified 06/07/24 23:09
[id number] (36 mos,up) tired,achy'
[From Fluarix]
perflutren [From Definity] Allergy Chest Pain Verified 03/08/24 07:49
shellfish derived Allergy SEVERE Verified 06/07/24 23:09
MIGRAINE
Kcsdwqz-QDR-IbK Reductase Allergy LEG PAINS, Verified 03/08/24 07:49
Inhibitor MUSCLE PAIN
[Odxyhaj-Llm-Szb Reductase
Inhibitor]
Sulfa (Sulfonamide Allergy VIOLENT Verified 06/07/24 23:09
Antibiotics) HEADACHE
DEFINITY Allergy Chest Pain Uncoded 03/08/24 07:49
�Medication �Instructions �Recorded �Confirmed �Type
aspirin 81 mg tablet,delayed 81 mg PO DAILY Blood clot 05/18/13 06/07/24 History
release prevention/tx
nitroglycerin 0.4 mg sublingual 0.4 mg sublingual [id number] PRN 11/13/15 06/07/24 Rx
tablet chest pain ##25
evolocumab 140 mg/mL subcutaneous 140 mg SQ Q2W High cholesterol 02/18/20 06/07/24 History
syringe (Repatha Syringe)
pantoprazole 40 mg tablet,delayed 40 mg PO DAILY Gastrointestinal 06/09/21 06/07/24 History
release Issue
triamterene 37.5 1 tab PO DAILY Blood Pressure ##0 06/09/21 06/07/24 History
mg-hydrochlorothiazide 25 mg tablet
empagliflozin 10 mg tablet 10 mg PO DAILY Diabetes 03/01/24 06/07/24 History
(Jardiance)
clopidogrel 75 mg tablet 75 mg PO DAILY #90 tabs 05/30/24 06/07/24 Rx
alprazolam 0.25 mg tablet 0.25 mg PO DAILYPRN PRN anxiety 06/07/24 06/07/24 History
polyethylene glycol 3350 17 gram 17 g PO DAILY 06/07/24 06/07/24 History
oral powder packet (Miralax)
Review of Systems
-
History Source: Patient
All other systems: Negative unless noted
Respiratory: Trouble Breathing
Cardiac: Chest Pain
Neurological: Headache
Physical Exam
Vital Signs
Temp Pulse Resp BP Pulse Ox
99.2 F 81 18 143/67 96
06/08/24 07:15 06/08/24 07:15 06/08/24 07:15 06/08/24 07:15 06/08/24 07:15
Lab Results
06/07/24 15:26
06/08/24 06:51
Troponin I 0.210 ng/ml H* D 06/08/24 06:51
Physical Exam
General: Well Developed, Well Nourished and No Apparent Distress
HEENT: Normocephalic and Anicteric
Respiratory: Clear and Non Labored Respirations
Cardiac: Regular Rhythm and Murmur (I/ systolic)
Musculoskeletal: No Edema
Skin: Warm and Dry
Neuro: AO x 3
Impression / Plan
-
Chest pain with known CAD, recent stenting:
-currently CP free, EKG's stable overall
-Abnormal troponins are noted. Possibly NSTEMI, which is threat to life. Trend trops to peak- if continues to rise, may need cath. Otherwise, could be related to microvascular disease and we will start medical therapy for this. Add nebivolol.
-check echo (not contrast- patient had severe allergy to Definity)
-Cardiac cath 05/30/24: LAD- widely patent mid LAD stent, 30-40% stenosis in mid LAD, tandem 40% distal LAD lesions. Circh 40% mid corc stenosis, OM3 50% mid, RCA 20% proximal, followed by widely patent stented segment, long stented segment in mid
and distal RCA with focal 20% in stent restenosis, new 80% lesion in distal RCA- s/p stent. 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
-continue DAPT. Cannot be on Imdur, but will add BB as above.
-lipids, hgbA1C
-will discuss with interventional cardiology
HTN:
-stable overall
-monitor with medicine adjustment
HLD:
-on Repatha
-update lipids
:
-mild
-update echo as above
DM2:
-monitor sugars
-management per primary
Data Reviewed
-
EKG: Tracing Personally Visualized and interpreted (SR with PVC's, LAD 94 BPM)
Radiology: Report Reviewed by me (No acute cardiopulmonary process.)
Medical Tests (Nuc Med, Echo etc): Report Reviewed by me (echo 12/03/22: Normal left ventricular size and systolic function. LV ejection fraction is 55- 60%. Mild aortic stenosis.)
Labs: Labs Reviewed by me
[2024-06-08] MEDS: PROTONIX 40 MG PO (09:27)
[2024-06-08] MEDS: FARXIGA 10 MG PO (09:28)
[2024-06-08] MEDS: ASPIR LOW (ENTERIC COATED) 81 MG PO (09:28)
[2024-06-08] MEDS: PLAVIX 75 MG PO (09:28)
[2024-06-08] MEDS: FIORICET 1 TAB PO (09:29)
[2024-06-08] MEDS: DYAZIDE 1 CAPSULE PO (09:41)
--- NOTE | 2024-06-08 09:48 | CM ---
Patient seen at bedside with
IA completed. CM consult completed for Advance directives
[facility] form explained & signed - per nurse Carly she states patient is now inpatient.
IMM explained & signed in chart.
DX: chest pain
PMH: CAD with multiple stents, hyperlipidemia, HTN, JUAN
Patient lives in a 1 story home with , 1 step to enter
PLOF: Independent
DME: CPAP ([facility])
Denies HH/SNF, states 1 day of oupatient cardiac rehab
Denies insecurities
PCP: Rafael Ballesteros
Pharmacy: [facility] [address], [place]
PLAN: home, CM to follow for needs.
[2024-06-08] MEDS: BYSTOLIC 5 MG PO (10:20)
[2024-06-08 11:08] VITALS: BP 123/63
[2024-06-08 13:10] LABS: Troponin I 0.278 ng/ml
[2024-06-08 16:00] VITALS: BP 132/70
[2024-06-08] MEDS: TYLENOL 1000 MG PO (17:18)
--- NOTE | 2024-06-08 17:18 | W.PN.HOSP.TC ---
Today's Communication/Plan
-
Check COVID
Influenza
Trend troponin until it peaks
Tylenol for symptoms-
Echo results pending
PT OT consult placed- ambulate in the rodriguez to see if he gets chest pain.
Assessment / Plan
Assessment / Plan
83-year-old male admitted with chest pain. Patient has had history of multiple PCI's for coronary artery disease last 1 was on May 30 to the distal RCA. He has been taking all his medicines without missing any doses. Troponins slightly
elevated. Developed a fever on 06/08/2024.
Patient states that he gets angina every time he walks or does physical therapy
CVS: S1-S2 normal
Chest: CTA B/L
Abdomen: Soft, NT / Bowel sounds present
Extremities: No edema
Back- Spine surgery scar healthy, NO redness, tenderness
# Fever
Check COVID, influenza screen
Urinalysis with culture
Chest x-ray with no evidence of pneumonia-reviewed by me
# Angina
Cardiology feels this is stable angina
History of multiple PCI 1999, 2003, 2008 send recent 1 on May 30, 2024
Patient has not tolerated nitros in the past secondary to headaches
Beta-tana started
Check echo
Continue aspirin, Plavix
Consider Ranexa if needed
Patient may need to be ambulated prior to discharge to see if his symptoms comes back.
He also has a fever-pericarditis/myocarditis should be considered in the differential
# Mild aortic stenosis
# Anxiety-continue as needed alprazolam
# Hypertension-continue triamterene hydrochlorothiazide. Nebivolol added
# Hyperlipidemia-on Repatha
# Diabetes-continue Jardiance
# Migraines-takes Fioricet as outpatient. His headaches could be secondary to start of a viral infection.
# Sleep apnea-continue CPAP
# GERD-continue PPI
# Enlarged prostate/nephrolithiasis
# Spinal stenosis/osteoarthritis/herniated disc/spondylolisthesis- L spine surgery February 2024-back looks stable
# Obesity with a BMI of 31
# DVT prophylaxis-Lovenox
# Full code
Discussed with cardiology
Discussed with nursing
Discussed with at bedside
Anticipated Discharge: Within 24 hours
Subjective/Interval History
-
Date of Service: June 08, 2024
Objective Data
-
Labs:
Laboratory Results
06/08/24
06:51
Sodium 140
Potassium 4.1
Chloride 105
Carbon Dioxide 19 L
BUN 24 H
Creatinine 1.1
Glucose 135 H
Calcium 9.4
Vital Signs:
Vital Signs
Temp Pulse Resp BP Pulse Ox
100.9 F H 83 16 132/70 94
06/08/24 16:00 06/08/24 16:00 06/08/24 16:00 06/08/24 16:00 06/08/24 16:00
[2024-06-08] MEDS: LOVENOX 40 MG SC (17:19)
[2024-06-08 18:51] LABS: COVID-19 Antigen Positive (Negative)
[2024-06-08 19:00] LABS: Troponin I 0.376 ng/ml
[2024-06-08 19:16] VITALS: BP 123/61
[2024-06-08 23:31] VITALS: BP 122/59
[2024-06-09 01:04] LABS: Urine Albumin Negative (Neg - Trace); Urine Bilirubin Negative (Negative); Urine Character Clear (Clear); Urine Color Yellow; Urine Glucose 3+ (Negative); Urine Ketone 1+ (Negative); Urine Leukocyte Negative (Negative); Urine Nitrite Negative (Negative); Urine Occult Blood Negative (Negative); Urine Urobilinogen Negative (Neg - 1+)
[2024-06-09] MEDS: MUCINEX 600 MG PO ×2 (01:37→08:52)
[2024-06-09 01:48] LABS: Troponin I 0.322 ng/ml
[2024-06-09 03:45] VITALS: BP 145/71
[2024-06-09 07:51] VITALS: BP 147/69
[2024-06-09 08:29] LABS: Troponin I 0.223 ng/ml
[2024-06-09] MEDS: DYAZIDE 1 CAPSULE PO (08:51)
[2024-06-09] MEDS: ASPIR LOW (ENTERIC COATED) 81 MG PO (08:52)
[2024-06-09] MEDS: PROTONIX 40 MG PO (08:52)
[2024-06-09] MEDS: PLAVIX 75 MG PO (08:52)
[2024-06-09] MEDS: BYSTOLIC 5 MG PO (08:52)
[2024-06-09] MEDS: FARXIGA 10 MG PO (08:52)
[2024-06-09 09:05] LABS: Blood Urea Nitrogen 24 mg/dl (9-20); Calcium 9.2 mg/dl (8.4-10.2); Carbon Dioxide 20 mmol/L (22-30); Chloride 101 mmol/L (98-107); Estimated Creatinine Clearance 52 ml/min; Glucose 149 mg/dl (70-99); HDL Cholesterol 40 mg/dl; LDL Cholesterol, Calculated 58 mg/dl; Sodium 136 mmol/L (135-145); Total Cholesterol 125 mg/dl (50-199); Triglyceride 138 mg/dl (10-149); Very Low Density Lipoprotein 27 mg/dl (0-30); eGFR > 60.00
[2024-06-09 09:37] LABS: Glycohemoglobin (HgbA1c) 6.9 % (4.0-5.6)
[2024-06-09 11:14] VITALS: BP 140/63
[2024-06-09 11:56] VITALS: BP 123/58; PULSE 70; O2SAT 94
[2024-06-09 11:58] VITALS: BP 123/58; PULSE 72; O2SAT 94
--- NOTE | 2024-06-09 12:03 | W.PN.HOSP.TC ---
Addendum entered and electronically signed by Steve Escalera DO 06/09/24 14:42:
Cardiology okay with discharge today on current regimen. Outpatient follow-up.
Original Note:
Today's Communication/Plan
-
Await cardiology input
Assessment / Plan
Assessment / Plan
Gen-AAOx3, NAD
HEENT-NC, AT, anicteric, clear oral mm
Neck-supple
CV-reg, no M, +S1/S2
Lungs-clear B/L
Abd-soft, NT, ND
Ext-no edema
Musculoskeletal-no cyanosis, clubbing
Skin-warm and dry
Neuro-grossly non-focal
Psych-calm, cooperative
Acute COVID-19 infection -no evidence of pneumonia. Chest x-ray clear. Treat supportively.
Angina
Cardiology feels this is stable angina
History of multiple PCI 1999, 2003, 2008 send recent 1 on May 30, 2024
Patient has not tolerated nitros in the past secondary to headaches
Beta-tana started
Echocardiogram with LVEF 55 to 60%, no wall motion abnormality. Stage I diastolic dysfunction. Mild AAS.
Continue aspirin, Plavix
Consider Ranexa if needed
Started on Bystolic 5 mg daily this admission. Has multiple medication intolerances.
Mild aortic stenosis
Anxiety-continue as needed alprazolam
Essential Hypertension -continue triamterene hydrochlorothiazide. Nebivolol added
Hyperlipidemia-on Repatha
DM2 without hyperglycemia -glucose 149 this morning. Hemoglobin A1c 6.9%. On Jardiance 10 mg daily at home.
Migraines-takes Fioricet as outpatient. His headaches could be secondary to start of a viral infection.
Sleep apnea-continue CPAP
GERD-continue PPI
Enlarged prostate/nephrolithiasis
Spinal stenosis/osteoarthritis/herniated disc/spondylolisthesis- L spine surgery February 2024-back looks stable
Obesity with a BMI of 31
DVT prophylaxis-Lovenox
Full code
Dispo - discharge if ok with cardiology.
Anticipated Discharge: Today
Subjective/Interval History
-
Date of Service: June 09, 2024
Patient seen and examined. No complaints.
Objective Data
-
Labs:
Laboratory Results
06/09/24
07:54
Sodium 136
Potassium 4.0
Chloride 101
Carbon Dioxide 20 L
BUN 24 H
Creatinine 1.2
Glucose 149 H
Calcium 9.2
Vital Signs:
Vital Signs
Temp Pulse Resp BP Pulse Ox
97.8 F 67 16 140/63 94
06/09/24 11:14 06/09/24 11:14 06/09/24 11:14 06/09/24 11:14 06/09/24 11:14
I&O
06/08/24 06/09/24 06/10/24
06:59 06:59 06:59
Intake Total 720 / 720
Output Total 750 / 750
Balance -30 / -30
Review of Systems
-
History Source: Patient
All other systems: Reviewed and negative
--- NOTE | 2024-06-09 12:06 | PTOTSP ---
pt currently requires no assistance to complete simple ADLs, functional transfers, ambulation. no acute OT needs identified at this time, will sign off.
[2024-06-09] MEDS: TYLENOL 650 MG PO (14:39)
--- NOTE | 2024-06-09 14:46 | W.DS.TRANS ---
DC Summary - Literacy Specialist
-
Discharge Instructions:
Discharge Diagnosis/Procedures COVID-19 infection, stable angina
Diet Low Fat,Low Cholesterol
Activity As tolerated
Driving Restrictions As prior to admission
Bathing Restrictions None
Instructions:
Stand-Alone Forms:
Changes to Home Medications: No
Discharge Medications:
DC Medications w/original date entered in [facility]
aspirin 81 mg tablet,delayed release 81 mg PO DAILY Blood clot prevention/tx 05/18/13
nitroglycerin 0.4 mg sublingual tablet 0.4 mg sublingual [id number] PRN chest pain ##25 11/13/15
evolocumab 140 mg/mL subcutaneous syringe (Repatha Syringe) 140 mg SQ Q2W High cholesterol 02/18/20
pantoprazole 40 mg tablet,delayed release 40 mg PO DAILY Gastrointestinal Issue 06/09/21
triamterene 37.5 mg-hydrochlorothiazide 25 mg tablet 1 tab PO DAILY Blood Pressure ##0 06/09/21
empagliflozin 10 mg tablet (Jardiance) 10 mg PO DAILY Diabetes 03/01/24
clopidogrel 75 mg tablet 75 mg PO DAILY #90 tabs 05/30/24
alprazolam 0.25 mg tablet 0.25 mg PO DAILYPRN PRN anxiety 06/07/24
polyethylene glycol 3350 17 gram oral powder packet (Miralax) 17 g PO DAILY Constipation 06/07/24
guaifenesin 600 mg tablet, extended release 12 hr 600 mg PO Q12 #20 tabs 06/09/24
nebivolol 2.5 mg tablet 5 mg (2 x 2.5 mg) PO DAILY #30 tabs 06/09/24
Home Medication Changes
Pending Results: No
--- NOTE | 2024-06-09 15:12 | W.PN.CD ---
Today's Communication / Plan
-
discharge on new start BB
antianginal titration as outpatient
Impression / Plan
-
NSTEMI, chest pain, HTN:
-low level rise and fall in troponin in setting of recent stenting and chest pain while walking; he had stable CAD other than a new RCA lesion that was successful stented with DESx1 05/30. His troponin rise is low level, not suggestive of IST. I
think this is likely small vessel disease and demand ischemia. He is not on good anti-anginal therapy due to prior intolerance. Got severe headaches with nitro. He has been at times hypertensive here and probably can tolerant more medication.
Started on nebivolol here and has no further pain. TTE w/o RWMA and troponin down. Will plan to discharge today and increase antianginals as outpatient - amlodipine next, then ranexa.
HLD:
-on Repatha
-LDL 58
:
-mild
-echo here stable from 2022
DM2:
-monitor sugars
-management per primary
Will discharge today. Will call our office for 2 week follow up appointment.
I reviewed:
-Cardiac cath 05/30/24: LAD- widely patent mid LAD stent, 30-40% stenosis in mid LAD, tandem 40% distal LAD lesions. Circh 40% mid corc stenosis, OM3 50% mid, RCA 20% proximal, followed by widely patent stented segment, long stented segment in mid
and distal RCA with focal 20% in stent restenosis, new 80% lesion in distal RCA- s/p stent. 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
-continue DAPT.
Physical Exam
Vital Signs/Labs
Vital Signs
Temp Pulse Resp BP Pulse Ox
36.6 C 67 16 140/63 94
06/09/24 11:14 06/09/24 11:14 06/09/24 11:14 06/09/24 11:14 06/09/24 11:14
06/08/24 06/09/24 06/10/24
06:59 06:59 06:59
Actual Weight 89.981 kg
06/07/24 15:26
06/09/24 07:54
Triglycerides 138 mg/dl (10-149) 06/09/24 07:54
LDL Cholesterol, Calc 58 mg/dl 06/09/24 07:54
VLDL Cholesterol, Calc 27 mg/dl (0-30) 06/09/24 07:54
HDL Cholesterol 40 mg/dl 06/09/24 07:54
LAB Results
06/07/24 06/07/24 06/08/24
15:26 18:37 00:06
Troponin I < 0.012 < 0.012 0.073 H* D
06/08/24 06/08/24 06/08/24
06:51 12:31 18:23
Troponin I 0.210 H* D 0.278 H* D 0.376 H* D
06/09/24 06/09/24 06/09/24
00:58 07:54 12:00
Troponin I 0.322 H* 0.223 H* D Cancelled
Physical Exam
Constitutional: No acute distress
Cardiovascular: Rhythm & rate is regular
Respiratory: Respiratory effort normal
Neuro/Psych: AO x 3
Data Reviewed
-
Date of Service: June 09, 2024
Medical Decision Making: Reviewed Test Results
Echo: Tracing Personally Visualized and interpreted
Medical Tests (PFT, Pathology etc): Image Personally Visualized and interpreted
Labs: Labs Reviewed by me
== END 2024-06-09 15:38 | disposition home or self-care (01) | DRG 280 ==
LOC: 3 WEST ACU 09:28
PROVIDERS: Hospitalist; Nurse Practitioner; Nurse Practitioner Family; Nurse Practitioner Gerontology; Physician Assistant; ADMITTING PHYSICIAN Internal Medicine; ATTENDING PHYSICIAN Hospitalist; EMERGENCY PHYSICIAN Emergency Medicine; FAMILY PHYSICIAN Family Medicine; OTHER PHYSICIAN Internal Medicine Cardiovascular Disease
DX: I21.4 Non-ST elevation (NSTEMI) myocardial infarction (principal); U07.1 COVID-19; I10 Essential (primary) hypertension; K21.9 Gastro-esophageal reflux disease without esophagitis; I25.118 Atherosclerotic heart disease of native coronary artery with other forms of angina pectoris; E78.00 Pure hypercholesterolemia, unspecified; I35.0 Nonrheumatic aortic (valve) stenosis; I49.3 Ventricular premature depolarization; I44.4 Left anterior fascicular block; E11.9 Type 2 diabetes mellitus without complications; N40.0 Benign prostatic hyperplasia without lower urinary tract symptoms; G43.909 Migraine, unspecified, not intractable, without status migrainosus; E66.9 Obesity, unspecified; F32.A Depression, unspecified; F41.9 Anxiety disorder, unspecified; G47.33 Obstructive sleep apnea (adult) (pediatric); M19.90 Unspecified osteoarthritis, unspecified site; I25.2 Old myocardial infarction; Z86.16 Personal history of COVID-19; Z87.01 Personal history of pneumonia (recurrent); Z95.5 Presence of coronary angioplasty implant and graft; Z91.013 Allergy to seafood; Z88.7 Allergy status to serum and vaccine; Z88.8 Allergy status to other drugs, medicaments and biological substances; Z91.018 Allergy to other foods; Z79.82 Long term (current) use of aspirin; Z79.02 Long term (current) use of antithrombotics/antiplatelets; Z79.84 Long term (current) use of oral hypoglycemic drugs; Z88.2 Allergy status to sulfonamides; Z68.31 Body mass index [BMI] 31.0-31.9, adult; Z87.442 Personal history of urinary calculi
CPT/HCPCS: 71046; 80048; 80053; 80061; 81003; 83036; 84484; 85025; 87502; 87811; 93005; 93306; 97162; 97166; 99285

== ENCOUNTER → 2024-11-13 08:50 | Outpatient (REF) | payer OTHER, SELFPAY | LOC: RCS 08:50 | PROVIDERS: ATTENDING PHYSICIAN Internal Medicine Cardiovascular Disease; FAMILY PHYSICIAN Family Medicine; REFERRING PHYSICIAN Student in an Organized Health Care Education/Training Program | DX: I25.10 Atherosclerotic heart disease of native coronary artery without angina pectoris (principal) | CPT/HCPCS: 93306 ==

== ENCOUNTER 2024-12-22 11:23 | Day surgery (SDC) | payer OTHER, SELFPAY ==
[2024-12-22] VITALS (10 sets, daily range): BP systolic 119–168; BP diastolic 66–92; BMI 33.7
[2024-12-22 12:28] LABS: Glucose - Point of Care 147 mg/dl (70-99)
--- NOTE | 2024-12-22 19:07 | ITS.CL.PN ---
[facility] - Procedure Note
Procedure
Procedure Note:
CARDIAC CATHETERIZATION REPORT
Date of Procedure: 12/22/2024
Referring: Dr. Avi Rosa MD, PhD
Indication: Anginal chest pain, known CAD
PROCEDURE(S)
1. coronary angiography
ACCESS: 6F right radial artery (closure: radial band; note: very tortuous right subclavian, consider groin access or left radial access in future caths particularly if intervention anticipated)
CATHETERS
1. 6F JR4
2. 6F JL3.5
MODERATE SEDATION: 30 minutes of moderate sedation was utilized. An independent medical assistant cardiology was present to assist with and help manage the patient's level of consciousness and physiologic status.
CORONARY ANGIOGRAPHY
Dominance: Right
LM: Large with minimal disease
LAD: Large vessel giving rise to 2 moderate caliber diagonal branches. There is a patent stent in the proximal LAD with mild ISR and diffuse mild CAD otherwise.
LCx: Moderate caliber vessel giving rise to a small OM1, small OM 2, moderate caliber OM 3, and small LPL branch. There is a patent stent in the OM 3 with focal 50% distal stent edge stenosis that is stable from prior angiography. There is otherwise
stable mild disease in the branch vessels.
RCA: Large vessel giving rise to a small RPDA and two small caliber RPL branches. There are overlapping stents extending from the proximal to distal vessel with mild ISR. There is diffuse moderate disease in the branch vessels unchanged from prior
angiography.
RADIATION: dose 419 mGy; DAP 36 Gy*cm2; fluoroscopy time 4.4 min
CONCLUSIONS
1. Stable coronary artery disease as described unchanged from prior angiography with no obstructive lesion to explain patient's symptoms.
RECOMMENDATIONS
1. Titration of antianginal medications to treat possible component of microvascular angina. Patient has been noncompliant with metoprolol and amlodipine which we recommend he restart.
2. Aggressive secondary prevention of coronary artery disease with goal LDL less than 55
Copy to: Dr. Avi Duarte MD, PhD (field marketing manager); Dr. Rafael Ballesteros MD (PCP)
Signed: Avi Rosa MD, PhD
== END 2024-12-22 16:32 | disposition home or self-care (01) ==
LOC: CATH 11:23
PROVIDERS: ATTENDING PHYSICIAN Student in an Organized Health Care Education/Training Program; FAMILY PHYSICIAN Family Medicine
DX: I25.10 Atherosclerotic heart disease of native coronary artery without angina pectoris (principal); I10 Essential (primary) hypertension; E78.5 Hyperlipidemia, unspecified; I35.0 Nonrheumatic aortic (valve) stenosis; E11.9 Type 2 diabetes mellitus without complications; G47.33 Obstructive sleep apnea (adult) (pediatric); K21.9 Gastro-esophageal reflux disease without esophagitis; Z79.82 Long term (current) use of aspirin; Z79.02 Long term (current) use of antithrombotics/antiplatelets; Z79.84 Long term (current) use of oral hypoglycemic drugs
CPT/HCPCS: 99152; 99153; C1769; C1894; 82962; 93454; Q9967